=== PATIENT | female | born 1955 | race Caucasian/White ===

== ENCOUNTER 2024-11-09 15:51 | Emergency (ER) | payer MEDICARE, BC ==
[2024-11-09 16:17] VITALS: BP 148/78; PULSE 89
== END 2024-11-09 16:20 | disposition home or self-care (01) ==
LOC: DL.ED 15:51
DX: L03.012 Cellulitis of left finger (principal); Z88.2 Allergy status to sulfonamides; Z88.8 Allergy status to other drugs, medicaments and biological substances; J45.909 Unspecified asthma, uncomplicated; Z86.16 Personal history of COVID-19
CPT/HCPCS: 99283